=== PATIENT | female | born 1980 | race African-American/Black ===

== ENCOUNTER 2016-11-09 21:12 | Emergency (ER) | payer MEDICAID ==
[~2016-11-09] VITALS: Ht 160 cm; Wt 63.6 kg
[2016-11-09] MEDS ORDERED: IBUPROFEN 600MG TABLET PO ONE (23:45)
[2016-11-09] MEDS ORDERED: TETANUS, DIPHTHERIA, PERTUSSIS VAC/PF 0.5ML (>7YR OLD) IM ONE (23:45)
[2016-11-09] MEDS ORDERED: BACITRACIN ZINC OINT UDPKT TOP ONE (23:45)
[2016-11-09] MEDS ORDERED: LIDOCAINE HCL 1% 20ML VIAL (Pyxis) INJ MC ONE (23:45)
[2016-11-10 01:36] VITALS: BP 112/78
== END 2016-11-10 01:38 | disposition home or self-care (01) ==
LOC: ER 23:37
DX: S51.012A Laceration without foreign body of left elbow, initial encounter (principal); F17.210 Nicotine dependence, cigarettes, uncomplicated; Z98.890 Other specified postprocedural states; Z98.51 Tubal ligation status; W01.0XXA Fall on same level from slipping, tripping and stumbling without subsequent striking against object, initial encounter; Y93.89 Activity, other specified; Y92.018 Other place in single-family (private) house as the place of occurrence of the external cause
CPT/HCPCS: 12001; 73080; 81025; 90471; 90715; 99284; J3490; Z7610

== ENCOUNTER 2016-11-18 12:06 | Emergency (ER) | payer MEDICAID ==
[~2016-11-18] VITALS: Ht 165.1 cm; Wt 54.0 kg
[2016-11-18 12:38] VITALS: BP 106/81
== END 2016-11-18 14:22 | disposition home or self-care (01) ==
LOC: ER 14:14
DX: Z48.02 Encounter for removal of sutures (principal); Z98.51 Tubal ligation status
CPT/HCPCS: 99281; Z7610

== ENCOUNTER 2016-11-28 10:30 | Emergency (ER) | payer SELFPAY ==
[~2016-11-28] VITALS: Ht 160 cm; Wt 64.0 kg
[2016-11-28 10:54] VITALS: BP 115/72
== END 2016-11-28 11:46 | disposition home or self-care (01) ==
LOC: ER 11:07
DX: S51.012D Laceration without foreign body of left elbow, subsequent encounter (principal); Z98.51 Tubal ligation status; X58.XXXD Exposure to other specified factors, subsequent encounter; Y99.8 Other external cause status; Y92.89 Other specified places as the place of occurrence of the external cause
CPT/HCPCS: 99281; Z7610